=== PATIENT | female | born 1990 | race Two or more races ===

== ENCOUNTER → 2017-07-30 | Outpatient (CLI) | payer OTHER | LOC: CIMAGING 08:17 | PROVIDERS: ATTEND Orthopaedic Surgery | DX: M25.552 Pain in left hip (principal) | CPT/HCPCS: 73700-PO ==

== ENCOUNTER → 2017-08-05 | Outpatient (CLI) | payer OTHER | LOC: CIMAGING 07:50 | PROVIDERS: ATTEND Orthopaedic Surgery | DX: M25.352 Other instability, left hip (principal) | CPT/HCPCS: 73700-PO ==